=== PATIENT | male | born 1990 | race Caucasian/White ===

== ENCOUNTER 2025-07-20 06:08 | Inpatient (IN) | payer OTHER ==
[~2025-07-20] VITALS: Ht 167.6 cm; Wt 57.3 kg
[2025-07-20] MEDS ORDERED: NS 1,000 ML IV SCH (06:30)
[2025-07-20] MEDS ORDERED: Pantoprazole Sodium 40 MG Injection IV ONE (06:30)
[2025-07-20] MEDS ORDERED: LORazepam 2 MG/ML 1ML Injection IV ONE (06:30)
[2025-07-20] MEDS ORDERED: Ondansetron HCl 2 MG / ML 2ML Vial IV ONE (06:30)
[2025-07-20 07:14] LABS: BASOPHILS ABSOLUTE AUTO 0.03 K/mm3 (0.00-0.23); BASOPHILS PERCENT AUTO 1 % (0-2); EOSINOPHILS ABSOLUTE AUTO 0.00 K/mm3 (0.00-0.68); EOSINOPHILS PERCENT AUTO 0 % (0-6); Hematocrit 29.4 % (37.0-53.0); Hemoglobin 9.5 g/dL (13.5-17.5); IMMATURE GRAN ABSOLUTE AUTO 0.03 K/mm3 (0.00-0.10); IMMATURE GRAN PERCENT AUTO 1 % (0-1); LYMPHOCYTES ABSOLUTE AUTO 0.68 K/mm3 (0.84-5.20); LYMPHOCYTES PERCENT AUTO 11 % (21-46); MONOCYTES ABSOLUTE AUTO 0.51 K/mm3 (0.16-1.47); MONOCYTES PERCENT AUTO 8 % (4-13); Mean Corpuscular HGB Conc 32.3 g/dL (31.5-36.5); Mean Corpuscular Volume 99 fL (80-100); NEUTROPHILS ABSOLUTE AUTO 5.15 K/mm3 (1.96-9.15); NEUTROPHILS PERCENT AUTO 80 % (41-73); NRBC ABSOLUTE 0.00 K/mm3 (0.00-0.02); NRBC Auto 0.0 /100 WBC (0.0-0.2); Platelet Count 147 K/mm3 (150-400); RDW Coefficient Variation 12.8 % (11.7-14.2); RDW Standard Deviation 45.7 fL (35.1-46.3)
[2025-07-20 07:25] LABS: Alanine Aminotransfer (ALT/SGP 145.0 U/L (12-78); Albumin, Blood 3.6 g/dL (3.4-5.0); Albumin/Globulin Ratio 0.9 (0.8-1.8); Anion Gap 16.0 mmol/L (3-11); Aspartate Aminotrans (AST/SGOT 191.0 U/L (12-37); Bilirubin, Total 0.8 mg/dL (0.1-1.0); Blood Urea Nitrogen 15.0 mg/dL (8-24); CO2, Blood 23.0 mmol/L (21-32); Calcium, Blood 9.6 mg/dL (8.5-10.1); Chloride, Blood 98.0 mmol/L (98-108); Creatinine, Blood 0.71 mg/dL (0.60-1.20); Globulin, Blood 3.8 g/dL (2.2-4.0); Glucose, Blood 140.0 mg/dL (70-99); Potassium, Blood 3.7 mmol/L (3.5-5.5); Sodium, Blood 133.0 mmol/L (136-145); Total Protein, Blood 7.4 g/dL (6.4-8.2)
[2025-07-20 07:26] LABS: Prothrombin Time Results 10.9 Sec (9.7-11.5)
[2025-07-20] MEDS ORDERED: LORazepam 2 MG/ML 1ML Injection IV PRN ×3 (10:40→10:45)
[2025-07-20] MEDS ORDERED: LORazepam 2 MG/ML 1ML Injection IM PRN ×3 (10:45)
[2025-07-20] MEDS ORDERED: FLU VACC TS2025-26(6MOS UP)/PF 45 MCG/0.5 ML SYRINGE IM SCH (10:50)
[2025-07-20] MEDS ORDERED: CefTRIAXone Sodium 1,000 MG in NS 100 ML IV SCH (13:00)
[2025-07-20 13:22] VITALS: BP 114/76
[2025-07-20 15:48] VITALS: BP 105/87
--- NOTE | 2025-07-20 16:12 | NUR ---
PT TRANSPORTED TO [facility] VIA GURNEY. PT SLEEPY, WAKES TO VOICE. ANSWERS APPROPRIATLY. MOTHER AT BEDSIDE. PT AGREES WITH PLANNED PROCEDURE.
[2025-07-20] MEDS ORDERED: EpiNEPhrine 1 MG/1 ML 1ML Vial ONE (16:14)
--- NOTE | 2025-07-20 16:32 | NUR ---
07/20/25 1632 Radha Rhodes ENDO 2 @ 1623- CONFIRMED AND REVIEWED H&P, MEDCICATIONS, ALLERGIES, MEDICAL HISTORY, RESPIRATORY HISTORY, VITAL SIGNS, 3-LEAD EKG, CONSENTS, AND PHYSICIAN ORDERS. PATIENT CONFIRMS NPO STATUS AND AGREES WITH SCHEDULED PROCEDURE. MONITOR INTACT WITH CONTINUOUS PULSE OXIMETRY, CAPNOGRAPHY, 3-LEAD EKG, INTERMITTENT BP. SUPPLEMENTAL O2 TO BE TITRATED THROUGHOUT PROCEDURE TO MAINTAIN O2 SATURATION ABOVE 90%. PATIENT DETERMINED TO BE ASA APPROPRIATE FOR MAC-DR. DORADO PROVIDING ANESTHESIA. SEE ANESTHESIA RECORD.
[2025-07-20] MEDS ORDERED: Polyethylene Glycol 3350 17 gm PO PRN (17:00)
[2025-07-20 17:13] VITALS: BP 100/65
--- NOTE | 2025-07-20 17:59 | NUR ---
SHIFT SUMMARY PT AOX4, BR AT THIS TIME BUT INDEPENDENT AT HOME. MOM AND FAMILY AT THE BS. EGD DONE TODAY, DR. MÁRQUEZ CLEARED HIM TO GO HOME TOMORROW. THE FAMILY AND THE PT ARE GOING TO DISCUSS WHETHER OR NOT THE PT WOULD LIKE TO DETOX HERE OR GO HOME. PT REPOSITIONS SELF IN BED. NO ACUTE EVENTS PER TELE. CALL LIGHT WITHIN REACH, BED LOCKED AND IN THE LOWEST POSITION. WILL REPORT TO ONCOMING NURSE.
--- NOTE | 2025-07-20 18:06 | NUR ---
NOTE: PT RETURNED FROM EGD, REPORT RECIEVED FROM POST-OP NURSE. VITALS OBTAINED. DR. MÁRQUEZ TO THE BS TO UPDATE THE FAMILY ON THE FINDINGS. PT IS ASLEEP, BREATHING EVEN AND UNLABORED. PICTURES IN THE CHART.
[2025-07-20 18:38] VITALS: BP 120/73
[2025-07-20 20:04] VITALS: BP 110/69
[2025-07-21] VITALS (21 sets, daily range): BP systolic 87–117; BP diastolic 56–84
--- NOTE | 2025-07-21 05:24 | NUR ---
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 PLEASANT AND COOPERATIVE. PT ADMIT FOR POSSIBLE GI BLEED WITH SIGNIFICANT HX FOR ALCOHOL ABUSE. EGD PERFORMED YESTERDAY--PER DAY SHIFT NURSE IN REPORT, EGD NEGATIVE FOR GI BLEED. FAMILY AT BEDSIDE AT START OF SHIFT, PT'S AND MOTHERS. PT IS CONSIDERING STAYING IN HOSPITAL FOR MEDICALLY SUPERVISED DETOX AND THEN TRANSITION TO BED WITH ADAPT. CIWAS PERFORMED OVER NIGHT WITH 4AM CIWA BEING A 9. PT GIVEN IV ATIVAN AND LIBRIUM. PT MENTATION IS "FUZZY" PT UNABLE TO TELL ME THE DATE OR ADD SIMPLE NUMBER ACCURATELY. SWEATY PALMS AND MILDLY CLAMMY SKIN, PT ENDORSES SOME TACTILE DISTURBANCES AND LIGHT SENSITIVITY. PT HAS BEEN VERY PLEASANT/POLITE. MILDLY ANXIOUS BUT NOT AGITATED. PT'S ORAL INTAKE HAS BEEN MINIMAL. PT REPORTS LOW APPETITE AND DISCOMFORT WITH EATING DUE TO DENTAL CARIES. PT RECENTLY MOVED HERE FROM [place] TO BE CLOSER TO FAMILY. PT HAS OVERALL MODERATE TO SEVERE GENERAL WEAKNESS AND APPEARANCE OF MUSCLE WASTING. PT STATES HE HAS LOST A LOT OF MUSCLE DUT TO INACTIVITY AND ADMITTEDLY DRINKING. PT IS A DAILY SMOKER--ENDORSING SMOKING 1-2 PACKS PER DAY. REGULAR INTERVAL ROUNDING COMPLETED. VITALS MONITORED. BLOOD PRESSURE SEEMED TO TREND DOWN OVERNIGHT. RECHECKED BP AFTER A SYSTOLIC OF 97, REPEAT WAS IMPROVED AT 117. ENCOURAGING PT TO DRINK WATER WHEN AWAKE AND TO EAT. PROVIDED EDUCATION TO PT AND ON RISKS OF ALCOHOL WITHDRAW AND S/S TO REPORT. CALL LIGHT ACCESSIBLE. PT (WITH ASSIST) IS MAKING NEEDS KNOWN. CARE ONGOING.
[2025-07-21 05:31] LABS: BASOPHILS ABSOLUTE AUTO 0.02 K/mm3 (0.00-0.23); BASOPHILS PERCENT AUTO 1 % (0-2); EOSINOPHILS ABSOLUTE AUTO 0.03 K/mm3 (0.00-0.68); EOSINOPHILS PERCENT AUTO 1 % (0-6); Hematocrit 22.2 % (37.0-53.0); Hemoglobin 7.0 g/dL (13.5-17.5); IMMATURE GRAN ABSOLUTE AUTO 0.01 K/mm3 (0.00-0.10); IMMATURE GRAN PERCENT AUTO 0 % (0-1); LYMPHOCYTES ABSOLUTE AUTO 1.16 K/mm3 (0.84-5.20); LYMPHOCYTES PERCENT AUTO 31 % (21-46); MONOCYTES ABSOLUTE AUTO 0.36 K/mm3 (0.16-1.47); MONOCYTES PERCENT AUTO 10 % (4-13); Mean Corpuscular HGB Conc 31.5 g/dL (31.5-36.5); Mean Corpuscular Volume 99 fL (80-100); NEUTROPHILS ABSOLUTE AUTO 2.17 K/mm3 (1.96-9.15); NEUTROPHILS PERCENT AUTO 58 % (41-73); NRBC ABSOLUTE 0.00 K/mm3 (0.00-0.02); NRBC Auto 0.0 /100 WBC (0.0-0.2); Platelet Count 130 K/mm3 (150-400); RDW Coefficient Variation 12.7 % (11.7-14.2); RDW Standard Deviation 45.9 fL (35.1-46.3)
[2025-07-21 05:54] LABS: Alanine Aminotransfer (ALT/SGP 77.0 U/L (12-78); Albumin, Blood 2.9 g/dL (3.4-5.0); Albumin/Globulin Ratio 1.0 (0.8-1.8); Anion Gap 10.0 mmol/L (3-11); Aspartate Aminotrans (AST/SGOT 90.0 U/L (12-37); Bilirubin, Total 0.6 mg/dL (0.1-1.0); Blood Urea Nitrogen 12.0 mg/dL (8-24); CO2, Blood 25.0 mmol/L (21-32); Calcium, Blood 8.6 mg/dL (8.5-10.1); Chloride, Blood 106.0 mmol/L (98-108); Creatinine, Blood 0.79 mg/dL (0.60-1.20); Globulin, Blood 2.8 g/dL (2.2-4.0); Glucose, Blood 92.0 mg/dL (70-99); Potassium, Blood 3.2 mmol/L (3.5-5.5); Sodium, Blood 138.0 mmol/L (136-145); Total Protein, Blood 5.7 g/dL (6.4-8.2)
[2025-07-21] MEDS ORDERED: NS 500 ML IV SCH (06:05)
--- NOTE | 2025-07-21 06:44 | NUR ---
HOSPITALIST CONTACT PT [facility] WS 7.0 WITH MORNING LABS. THIS WAS A 2.5 POINT DROP FROM YESTERDAY AT 9.5. CALL PLACED TO HOSPITALIST. SPOKE TO DR NUÑEZ. ADVISED OF PT'S LABS, CHANGE IN LABS AND EDG PERFORMED YESTERDAY FOR CONCERN OF GI BLEED. ALSO, PT'S BLOOD PRESSURES HAVE BEEN UP/DOWN. NEW ORDER TO TRANSFUSE 1 UNIT PRBC AND TYPE AND SCREEN. ADVISED BLOOD TRANSFUSION CONSENT NEEDS REVIEWED AND SIGNED. DR REQUESTED TO HAVE FORM AT BEDSIDE AND HE WOULD COME TO DISCUSS/COMPLETE CONSENT WITH PATIENT.
[2025-07-21 08:32] LABS: IMMATURE RETIC FRACTION 14.0 % (2.3-16.0); RETIC HGB EQUIVALENT 29.1 pg (28.20-36.60); RETICULOCYTE ABSOLUTE 0.0592 M/mm3 (0.0200-0.1100); RETICULOCYTE COUNT PERCENT 2.69 % (0.50-2.50)
[2025-07-21 09:07] LABS: Ferritin, Serum 53.0 ng/mL (26-388); Total Iron Binding Capacity 292.0 ug/dL (250-450)
[2025-07-21 15:21] LABS: BASOPHILS ABSOLUTE AUTO 0.02 K/mm3 (0.00-0.23); BASOPHILS PERCENT AUTO 1 % (0-2); EOSINOPHILS ABSOLUTE AUTO 0.05 K/mm3 (0.00-0.68); EOSINOPHILS PERCENT AUTO 1 % (0-6); Hematocrit 25.7 % (37.0-53.0); Hemoglobin 8.1 g/dL (13.5-17.5); IMMATURE GRAN ABSOLUTE AUTO 0.01 K/mm3 (0.00-0.10); IMMATURE GRAN PERCENT AUTO 0 % (0-1); LYMPHOCYTES ABSOLUTE AUTO 1.13 K/mm3 (0.84-5.20); LYMPHOCYTES PERCENT AUTO 29 % (21-46); MONOCYTES ABSOLUTE AUTO 0.38 K/mm3 (0.16-1.47); MONOCYTES PERCENT AUTO 10 % (4-13); Mean Corpuscular HGB Conc 31.5 g/dL (31.5-36.5); Mean Corpuscular Volume 98 fL (80-100); NEUTROPHILS ABSOLUTE AUTO 2.36 K/mm3 (1.96-9.15); NEUTROPHILS PERCENT AUTO 60 % (41-73); NRBC ABSOLUTE 0.00 K/mm3 (0.00-0.02); NRBC Auto 0.0 /100 WBC (0.0-0.2); Platelet Count 125 K/mm3 (150-400); RDW Coefficient Variation 14.2 % (11.7-14.2); RDW Standard Deviation 51.0 fL (35.1-46.3)
--- NOTE | 2025-07-21 15:28 | NUR ---
LATE ENTRY FOR 1320 PT REPORTED FEELING QUITE ANXIOUS WITH MILDER WITHDRAWAL SYMPTOMS WITHIN THE CIWA BUNDLE. STATED ATIVAN IS MORE EFFECTIVE THAN LIBRIUM TO TREAT HIS WITHDRAWAL RELATED ANXIETY. 2MG ATIVEN GIVEN. PRIMARY RN NOTIFIED AFTER RETURN FROM BREAK.
[2025-07-22 04:07] VITALS: BP 100/72
--- NOTE | 2025-07-22 04:25 | NUR ---
SHIFT SUMMARY PT REMAINS IN BED THROUGHOUT THIS EVENING. MEDICATED X1 WITH LIBRIUM 50 MG PER CIWA PROTOCOL JUST AFTER 8PM. AND MOTHER AT BEDSIDE THIS EVENING, STAYS NIGHT. DURING ASSESSMENTS PT OFTEN STATES HE'S TOO GROGGY/SLEEPY TO APPRECIATE ANY OTHER SYMPTOMS. IV REMAINS PATENT IN RAC. ADAPT FOR REHAB PENDING STABILIZATION OF ETOH WITHDRAWAL. CONTINENT, UTILIZING URINAL. REMAINS A&OX4. 1 PERSON ASSIST TO STAND/PIVOT. HAS NOT REQUIRED BSC THIS EVENING. IS TOLERATING PO FLUIDS WELL. ENJOYS STARLY/CRANBERRY SODA. NO FURTHER REPORTS OF BLOOD BY MOUTH/RECTUM.
[2025-07-22 06:57] LABS: BASOPHILS ABSOLUTE AUTO 0.04 K/mm3 (0.00-0.23); BASOPHILS PERCENT AUTO 1 % (0-2); EOSINOPHILS ABSOLUTE AUTO 0.07 K/mm3 (0.00-0.68); EOSINOPHILS PERCENT AUTO 2 % (0-6); Hematocrit 26.8 % (37.0-53.0); Hemoglobin 8.4 g/dL (13.5-17.5); IMMATURE GRAN ABSOLUTE AUTO 0.01 K/mm3 (0.00-0.10); IMMATURE GRAN PERCENT AUTO 0 % (0-1); LYMPHOCYTES ABSOLUTE AUTO 1.31 K/mm3 (0.84-5.20); LYMPHOCYTES PERCENT AUTO 34 % (21-46); MONOCYTES ABSOLUTE AUTO 0.38 K/mm3 (0.16-1.47); MONOCYTES PERCENT AUTO 10 % (4-13); Mean Corpuscular HGB Conc 31.3 g/dL (31.5-36.5); Mean Corpuscular Volume 99 fL (80-100); NEUTROPHILS ABSOLUTE AUTO 2.08 K/mm3 (1.96-9.15); NEUTROPHILS PERCENT AUTO 53 % (41-73); NRBC ABSOLUTE 0.00 K/mm3 (0.00-0.02); NRBC Auto 0.0 /100 WBC (0.0-0.2); Platelet Count 148 K/mm3 (150-400); RDW Coefficient Variation 14.3 % (11.7-14.2); RDW Standard Deviation 51.6 fL (35.1-46.3)
[2025-07-22 07:06] LABS: Alanine Aminotransfer (ALT/SGP 89.0 U/L (12-78); Albumin, Blood 2.8 g/dL (3.4-5.0); Albumin/Globulin Ratio 0.9 (0.8-1.8); Anion Gap 9.0 mmol/L (3-11); Aspartate Aminotrans (AST/SGOT 180.0 U/L (12-37); Bilirubin, Total 0.5 mg/dL (0.1-1.0); Blood Urea Nitrogen 9.0 mg/dL (8-24); CO2, Blood 26.0 mmol/L (21-32); Calcium, Blood 8.4 mg/dL (8.5-10.1); Chloride, Blood 107.0 mmol/L (98-108); Creatinine, Blood 0.84 mg/dL (0.60-1.20); Globulin, Blood 3.1 g/dL (2.2-4.0); Glucose, Blood 91.0 mg/dL (70-99); Potassium, Blood 3.8 mmol/L (3.5-5.5); Sodium, Blood 138.0 mmol/L (136-145); Total Protein, Blood 5.9 g/dL (6.4-8.2)
[2025-07-22 07:27] LABS: Magnesium, Blood 2.5 mg/dL (1.6-2.4); Phosphorus, Blood 2.7 mg/dL (2.5-4.9)
[2025-07-22 07:47] VITALS: BP 109/81
[2025-07-22] MEDS ORDERED: LORazepam 2 MG/ML 1ML Injection IM PRN ×3 (12:40→12:45)
[2025-07-22] MEDS ORDERED: LORazepam 2 MG/ML 1ML Injection IV PRN ×3 (12:40→12:45)
[2025-07-22 14:35] VITALS: BP 115/82
--- NOTE | 2025-07-22 17:30 | NUR ---
PATIENT AWAKE AND COOPERATIVE WITH CARE TODAY. ANSWERED ALL QUESTIONS DURING SHIFT AND PATIENT HAS NO CONCERNS. CALL LIGHT WITHIIN REACH. PLAN IS FOR PATIENT TO RETURN HOME FOR A LITTLE OVER A WEEK THEN GOES TO INPATIENT REHAB. PATIENT HAS CONCERNS ABOUT RETURNING HOME BEFORE TREATMENT. DR RODRIGUEZ AT BEDSIDE FOR CONSIDERATE AMOUNT OF TIME LISTENING TO THE PATIENTS CONCERNS AND ADDRESSING THEM.
[2025-07-22 19:27] VITALS: BP 114/78
[2025-07-22 19:55] LABS: Magnesium, Blood 2.2 mg/dL (1.6-2.4); Phosphorus, Blood 2.5 mg/dL (2.5-4.9)
[2025-07-23 04:30] VITALS: BP 101/65
--- NOTE | 2025-07-23 07:22 | NUR ---
NO ACUTE CHANGES OVERNIGHT. PT CIWA SCORING FOLLOWS; 4,0,0 THROUGHOUT SHIFT. PT WAS ABLE TO REST FOR MUCH OF THE NIGHT STATING HE HASN'T SLEPT THAT WELL IN A LONG TIME. PT IS VERY PLEASANT, USES LIGHT APPROPRIATELY, AND PARTICIPATES IN CARE.
[2025-07-23 07:38] VITALS: BP 98/66
[2025-07-23 08:16] LABS: BASOPHILS ABSOLUTE AUTO 0.03 K/mm3 (0.00-0.23); BASOPHILS PERCENT AUTO 1 % (0-2); EOSINOPHILS ABSOLUTE AUTO 0.09 K/mm3 (0.00-0.68); EOSINOPHILS PERCENT AUTO 2 % (0-6); Hematocrit 27.6 % (37.0-53.0); Hemoglobin 8.7 g/dL (13.5-17.5); IMMATURE GRAN ABSOLUTE AUTO 0.02 K/mm3 (0.00-0.10); IMMATURE GRAN PERCENT AUTO 1 % (0-1); LYMPHOCYTES ABSOLUTE AUTO 1.46 K/mm3 (0.84-5.20); LYMPHOCYTES PERCENT AUTO 35 % (21-46); MONOCYTES ABSOLUTE AUTO 0.48 K/mm3 (0.16-1.47); MONOCYTES PERCENT AUTO 12 % (4-13); Mean Corpuscular HGB Conc 31.5 g/dL (31.5-36.5); Mean Corpuscular Volume 99 fL (80-100); NEUTROPHILS ABSOLUTE AUTO 2.08 K/mm3 (1.96-9.15); NEUTROPHILS PERCENT AUTO 50 % (41-73); NRBC ABSOLUTE 0.00 K/mm3 (0.00-0.02); NRBC Auto 0.0 /100 WBC (0.0-0.2); Platelet Count 161 K/mm3 (150-400); RDW Coefficient Variation 13.6 % (11.7-14.2); RDW Standard Deviation 49.1 fL (35.1-46.3)
[2025-07-23 08:36] LABS: Magnesium, Blood 2.3 mg/dL (1.6-2.4)
[2025-07-23 08:37] LABS: Alanine Aminotransfer (ALT/SGP 96.0 U/L (12-78); Albumin, Blood 2.7 g/dL (3.4-5.0); Albumin/Globulin Ratio 0.9 (0.8-1.8); Anion Gap 9.0 mmol/L (3-11); Aspartate Aminotrans (AST/SGOT 168.0 U/L (12-37); Bilirubin, Total 0.5 mg/dL (0.1-1.0); Blood Urea Nitrogen 6.0 mg/dL (8-24); CO2, Blood 23.0 mmol/L (21-32); Calcium, Blood 8.4 mg/dL (8.5-10.1); Chloride, Blood 109.0 mmol/L (98-108); Creatinine, Blood 0.78 mg/dL (0.60-1.20); Globulin, Blood 3.0 g/dL (2.2-4.0); Glucose, Blood 100.0 mg/dL (70-99); Phosphorus, Blood 3.4 mg/dL (2.5-4.9); Potassium, Blood 3.3 mmol/L (3.5-5.5); Sodium, Blood 138.0 mmol/L (136-145); Total Protein, Blood 5.7 g/dL (6.4-8.2)
[2025-07-23] MEDS ORDERED: Enoxaparin 40 MG/0.4 ML SYR SC SCH (15:00)
--- NOTE | 2025-07-23 16:50 | NUR ---
PATIENT MORE AWAKE AND TALKATIVE TODAY, STATED HE DOES NOT REMEMBER MUCH OF YESTERDAY, UP AMBULATING A COUPLE TIMES TODAY IN THE LAWS. COOPERATIVE WITH CARE, CIWA SCORED REMAIN LOW WITH NO CONCERNS FROM PATIENT OR FAMILY. PATIENT ANTICIPATES DISCHARGE TOMORROW WITH [facility]. CALL LIGHT WITHIN REACH AND FAMILY REMAINS AT BEDSIDE.
[2025-07-23 19:26] VITALS: BP 117/76
[2025-07-24 04:40] VITALS: BP 108/72
[2025-07-24 05:07] LABS: BASOPHILS ABSOLUTE AUTO 0.04 K/mm3 (0.00-0.23); BASOPHILS PERCENT AUTO 1 % (0-2); EOSINOPHILS ABSOLUTE AUTO 0.12 K/mm3 (0.00-0.68); EOSINOPHILS PERCENT AUTO 3 % (0-6); Hematocrit 26.9 % (37.0-53.0); Hemoglobin 8.5 g/dL (13.5-17.5); IMMATURE GRAN ABSOLUTE AUTO 0.01 K/mm3 (0.00-0.10); IMMATURE GRAN PERCENT AUTO 0 % (0-1); LYMPHOCYTES ABSOLUTE AUTO 1.58 K/mm3 (0.84-5.20); LYMPHOCYTES PERCENT AUTO 34 % (21-46); MONOCYTES ABSOLUTE AUTO 0.77 K/mm3 (0.16-1.47); MONOCYTES PERCENT AUTO 17 % (4-13); Mean Corpuscular HGB Conc 31.6 g/dL (31.5-36.5); Mean Corpuscular Volume 99 fL (80-100); NEUTROPHILS ABSOLUTE AUTO 2.16 K/mm3 (1.96-9.15); NEUTROPHILS PERCENT AUTO 46 % (41-73); NRBC ABSOLUTE 0.00 K/mm3 (0.00-0.02); NRBC Auto 0.0 /100 WBC (0.0-0.2); Platelet Count 174 K/mm3 (150-400); RDW Coefficient Variation 13.6 % (11.7-14.2); RDW Standard Deviation 47.9 fL (35.1-46.3)
[2025-07-24 05:32] LABS: Alanine Aminotransfer (ALT/SGP 113.0 U/L (12-78); Albumin, Blood 2.7 g/dL (3.4-5.0); Albumin/Globulin Ratio 0.8 (0.8-1.8); Anion Gap 9.0 mmol/L (3-11); Aspartate Aminotrans (AST/SGOT 163.0 U/L (12-37); Bilirubin, Total 0.4 mg/dL (0.1-1.0); Blood Urea Nitrogen 6.0 mg/dL (8-24); CO2, Blood 25.0 mmol/L (21-32); Calcium, Blood 8.9 mg/dL (8.5-10.1); Chloride, Blood 109.0 mmol/L (98-108); Creatinine, Blood 0.8 mg/dL (0.60-1.20); Globulin, Blood 3.2 g/dL (2.2-4.0); Glucose, Blood 106.0 mg/dL (70-99); Potassium, Blood 3.6 mmol/L (3.5-5.5); Sodium, Blood 139.0 mmol/L (136-145); Total Protein, Blood 5.9 g/dL (6.4-8.2)
--- NOTE | 2025-07-24 05:46 | NUR ---
SHIFT SUMMARY PATIENT A/OX4, ABLE TO MAKE NEEDS KNOWN. PLEASANT AND COOPERATIVE WITH STAFF. COMPLAINING OF HEADACHE UPON SHIFT STARTING, BUT SUBSIDED QUICKLY WITHOUT MEDICATION. PATIENT THEN ABLE TO AMBULATE IN THE HALLS WITH NURSING STAFF AND HIS MOTHER, ANTHONY. Q4 CIWA SCORES OF 2, 5, AND 3 THIS SHIFT. PATIENT WAS ABLE TO FALL ASLEEP AROUND 0200 THIS MORNING, REPORTS FEELS RESTED. PATIENT S MOTHER AT BEDSIDE ALL OF SHIFT. NO OTHER CONCERNS AT THIS TIME, WILL CONTINUE TO MONITOR.
[2025-07-24 07:40] VITALS: BP 101/71
[2025-07-24] MEDS ORDERED: GABA300 PO (11:09)
[2025-07-24] MEDS ORDERED: B-1100 M1 PO (11:10)
[2025-07-24] MEDS ORDERED: NICO21TP TOP (11:10)
[2025-07-24] MEDS ORDERED: FERSU300 PO (11:11)
--- NOTE | 2025-07-24 11:44 | NUR ---
PT DISCHARGED THE PT VERBALIZED UNDERSTANDING OF THE DC INSTRUCTIONS. PT PRESCRIPTINS FAXED TO [facility] REQUESTED.PT TRANSFERED VIA WHEELCHAIR ACCPOMPANIED BY HIS FAMILY AND THE WILLOWER
--- NOTE | 2025-07-24 13:05 | NUR ---
DISCHARGE NOTE PT A&OX4. PT ADMITED DUE TO GI BLEED. PT REPORTS NO CHEST PAIN, SOB, GEN PAIN. PT REPORTS NO NAUSEA. PT IS INDEPENDENT IN ROOM. FAMILY AT BEDSIDE THIS AM. PT HAD Q4 CIWAS. LAST CIWA WAS 3 MINIMAL TREMORS AND ANXIETY NOTED. PUT IN DISCHARGE ORDERS. THIS RN COMPLETED DISCHARGED AND FAXED MEDS. BREAK RN WENT OVER DISCHARGE INSTRUCTIONS AND DISCHARGED PT.
== END 2025-07-24 12:00 | disposition home or self-care (01) | DRG 381 ==
LOC: ER 06:08 → MEDS 08:48 → EDPENDDIS 07-24 10:43 → ENPENDDIS 07-24 10:43 → MEDS 07-24 12:00
PROVIDERS: Emergency Medicine; Hospitalist; Internal Medicine; Internal Medicine Gastroenterology; Student in an Organized Health Care Education/Training Program; ADMIT Internal Medicine
PROC: 0DB78ZX Excision of Stomach, Pylorus, Via Natural or Artificial Opening Endoscopic, Diagnostic (ICD-10-PCS; 2025-07-20)
PROC: 0DB68ZX Excision of Stomach, Via Natural or Artificial Opening Endoscopic, Diagnostic (ICD-10-PCS; 2025-07-20)
PROC: 0DB98ZX Excision of Duodenum, Via Natural or Artificial Opening Endoscopic, Diagnostic (ICD-10-PCS; principal; 2025-07-20 16:30)
DX: K22.11 Ulcer of esophagus with bleeding (principal); E87.1 Hypo-osmolality and hyponatremia; F10.232 Alcohol dependence with withdrawal with perceptual disturbance; K76.0 Fatty (change of) liver, not elsewhere classified; F17.210 Nicotine dependence, cigarettes, uncomplicated; D64.9 Anemia, unspecified; R44.1 Visual hallucinations; K31.89 Other diseases of stomach and duodenum; F41.9 Anxiety disorder, unspecified; K26.9 Duodenal ulcer, unspecified as acute or chronic, without hemorrhage or perforation; Z88.8 Allergy status to other drugs, medicaments and biological substances; Z71.6 Tobacco abuse counseling; Z71.41 Alcohol abuse counseling and surveillance of alcoholic
CPT/HCPCS: 36415; 36430; 76705; 80053; 82607; 82728; 82746; 83540; 83550; 83690; 83735; 84100; 85025; 85045; 85610; 85730; 86850; 86900; 86901; 86923; 88305; 88342; 93005; 93010; 96365-59; 96366-59; 96367; 96368; 96375-59; 96376; 97110; 97116; 97161; 97530; 99285-25; A9270; G0378; J0169; J2060; J2405; J2470; J2704; J3411; J3480; J7030; J7040; J7050; J7120; P9016

== ENCOUNTER → 2025-08-10 | Outpatient (CLI) | payer OTHER ==
[~2025-08-10] MED LIST: B-1100 M1 PO; FERSU300 PO; GABA300 PO; NICO21TP TOP
[2025-08-10 09:24] LABS: BASOPHILS ABSOLUTE AUTO 0.06 K/mm3 (0.00-0.23); BASOPHILS PERCENT AUTO 1 % (0-2); EOSINOPHILS ABSOLUTE AUTO 0.21 K/mm3 (0.00-0.68); EOSINOPHILS PERCENT AUTO 3 % (0-6); Hematocrit 34.1 % (37.0-53.0); Hemoglobin 10.4 g/dL (13.5-17.5); IMMATURE GRAN ABSOLUTE AUTO 0.03 K/mm3 (0.00-0.10); IMMATURE GRAN PERCENT AUTO 0 % (0-1); LYMPHOCYTES ABSOLUTE AUTO 1.49 K/mm3 (0.84-5.20); LYMPHOCYTES PERCENT AUTO 21 % (21-46); MONOCYTES ABSOLUTE AUTO 0.86 K/mm3 (0.16-1.47); MONOCYTES PERCENT AUTO 12 % (4-13); Mean Corpuscular HGB Conc 30.5 g/dL (31.5-36.5); Mean Corpuscular Volume 98 fL (80-100); NEUTROPHILS ABSOLUTE AUTO 4.43 K/mm3 (1.96-9.15); NEUTROPHILS PERCENT AUTO 63 % (41-73); NRBC ABSOLUTE 0.00 K/mm3 (0.00-0.02); NRBC Auto 0.0 /100 WBC (0.0-0.2); Platelet Count 361 K/mm3 (150-400); RDW Coefficient Variation 13.2 % (11.7-14.2); RDW Standard Deviation 46.7 fL (35.1-46.3)
[2025-08-10 09:43] LABS: Alanine Aminotransfer (ALT/SGP 55.0 U/L (12-78); Albumin, Blood 3.4 g/dL (3.4-5.0); Albumin/Globulin Ratio 0.9 (0.8-1.8); Anion Gap 14.0 mmol/L (3-11); Aspartate Aminotrans (AST/SGOT 57.0 U/L (12-37); Bilirubin, Total 0.2 mg/dL (0.1-1.0); Blood Urea Nitrogen 3.0 mg/dL (8-24); CO2, Blood 30.0 mmol/L (21-32); Calcium, Blood 9.9 mg/dL (8.5-10.1); Chloride, Blood 105.0 mmol/L (98-108); Creatinine, Blood 0.76 mg/dL (0.60-1.20); Globulin, Blood 3.9 g/dL (2.2-4.0); Glucose, Blood 112.0 mg/dL (70-99); Potassium, Blood 3.2 mmol/L (3.5-5.5); Sodium, Blood 146.0 mmol/L (136-145); Total Protein, Blood 7.3 g/dL (6.4-8.2)
== END ==
LOC: LAB 09:20 → LAB SHORT 09:20
PROVIDERS: Chiropractor
DX: M25.471 Effusion, right ankle (principal); M25.472 Effusion, left ankle
CPT/HCPCS: 80053; 83880; 85025